=== PATIENT | male | born 1990 | race American Indian/Alaskan Native ===

== ENCOUNTER 2019-12-08 03:12 | Emergency (ER) | payer SELFPAY ==
[2019-12-08 03:20] VITALS: BP 125/72
[2019-12-08] MEDS ORDERED: KETOROLAC 30 MG/1 ML INJ IM ONE (03:48)
--- NOTE | 2019-12-08 03:49 | Emergency Department Report ---
ED Back Pain/Injury HPI - General Chief Complaint: Back Pain/Injury Stated Complaint: BACK PAIN Time Seen by Provider: 12/08/19 03:44 Source: patient Limitations: No Limitations - History of Present Illness Initial Comments: 29-year-old -[place] male presents to the emergency room complaining of lower back pain left hip left side and left testicle pain times a couple of days. Patient reports that the pain is sharp and intermittent. Patient denies any injury. Patient states that his hips are trying to pop out. Patient reported he last took ibuprofen was 7 PM yesterday night. Patient reports he has a past medical history of asthma, pericarditis, pulmonary embolism and clot in left leg. Patient does admit that he drinks alcohol smokes cigarettes smokes weed. Patient denies any dysuria no hematuria. He has an allergy to penicillin. MD Complaint: back pain Onset/Timin -: days(s) Similar Symptoms Previously: No Radiation: groin, left leg (Hip), other (Left testicle) Severity: moderate Severity scale (0 -10): 6 Consistency: intermittent Improves With: none Worsens With: movement Associated Symptoms: denies: difficulty urinating, fever/chills, abdominal pain, loss of appetite, nausea/vomiting - Related Data Previous Rx's Medication Instructions Recorded Last Taken Type Ibuprofen [Motrin 600 MG tab] 600 mg PO Q8H PRN #15 tablet 12/08/19 Unknown Rx Allergies Allergy/AdvReac Type Severity Reaction Status Date / Time Penicillins Allergy Hives Verified 12/08/19 03:20 ED Review of Systems ROS: Stated complaint: BACK PAIN Other details as noted in HPI Comment: All other systems reviewed and negative ED Past Medical Hx - Past Medical History Previous Medical History?: Yes Hx Asthma: Yes Additional medical history: 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 - Surgical History Past Surgical History?: No - Social History Smoking Status: Current Every Day Smoker Substance Use Type: Marijuana - Medications Home Medications: Home Medications Medication Instructions Recorded Confirmed Last Taken Type Ibuprofen [Motrin 600 MG tab] 600 mg PO Q8H PRN #15 tablet 12/08/19 Unknown Rx ED Physical Exam - General Limitations: No Limitations General appearance: alert, in no apparent distress - Head Head exam: Present: atraumatic, normocephalic - Eye Eye exam: Present: normal appearance - ENT ENT exam: Present: mucous membranes moist - Neck Neck exam: Present: normal inspection, full ROM - GI/Abdominal GI/Abdominal exam: Present: soft. Absent: distended - exam: Present: testicular tenderness (Left), circumcision. Absent: urethral discharge, scrotal swelling External exam: Present: other (Left groin adenopathy with tenderness) - Extremities Exam Extremities exam: Present: full ROM - Expanded Lower Extremity Exam Left Hip exam: Present: full ROM, tenderness. Absent: swelling, ecchymosis, deformit y, erythema Upper Leg exam: Present: normal inspection, full ROM Knee exam: Present: normal inspection, full ROM Lower Leg exam: Present: normal inspection, full ROM Ankle exam: Present: normal inspection, full ROM Gait: Positive: observed and normal - Expanded Back Exam Expanded Back exam: Sciatic Notch Tenderness: Left, Positive Straight Leg Raise: Left - Neurological Exam Neurological exam: Present: alert, oriented X3 - Psychiatric Psychiatric exam: Present: normal affect, normal mood ED Course Vital Signs 12/08/19 03:17 Temperature 98.8 F Pulse Rate 74 Respiratory 16 Rate Blood Pressure 125/72 O2 Sat by Pulse 100 Oximetry ED Medical Decision Making - Radiology Data Radiology results: report reviewed Print Report Referring Physician:TUAN GORDONPatient Name:NATHANIEL ESCALANTEPatient ID:[id number] of :[id number]:MaleAccession:[id number] Date:[id number] Status:Finalized Findings [facility] [address] [place] [address] Ultrasound Report Signed Patient: NATHANIEL ESCALANTE MR#: [id number] 81 : 1990 Acct:[id number] Age/Sex: 29 / M ADM Date: 12/08/19 Loc: ED Attending Dr: Ordering Physician: CHESTER BLAIR Date of Service: 12/08/19 Procedure(s): US testicular doppler comp Accession Number(s): [id number] cc: CHESTER BLAIR ULTRASOUND SCROTUM INDICATION: Left testicular pain. COMPARISON None available. FINDINGS -- RIGHT TESTIS: Size: 4.8 x 2.4 x 3.3 cm. Echotexture: Normal. Color Doppler Flow: Normal. Lesions: None. EPIDIDYMIS: Size: Normal. Echotexture: Normal. Color Doppler Flow: Normal. Lesions: None. Hydrocele: None. Varicocele: None. Additional Findings: None. FINDINGS -- LEFT TESTIS: Size: 4.4 x 2.1 x 3.1 cm. Echotexture: Normal. Color Doppler Flow: Normal. Lesions: None. EPIDIDYMIS: Size: Normal. Echotexture: Normal. Color Doppler Flow: Normal. Lesions: None. Hydrocele: None. Varicocele: None. Additional Findings: None. IMPRESSION: 1. No sonographic abnormality of the scrotum. Signer Name: Jeffrey Steven MD Signed: 12/08/2019 4:27 AM Workstation Name: [id number] Transcribed By: CALOS Dictated By: Jeffrey Steven MD Electronically Authenticated By: Jeffrey Steven MD Signed Date/Time: 12/08/19426 DD/ 5 TD/TT: - Medical Decision Making 29-year-old -[place] male presents to the emergency room complaining of lower back pain left hip left side and left testicle pain times a couple of days. Patient reports that the pain is sharp and intermittent. Patient denies any injury. Patient states that his hips are trying to pop out. Patient reported he last took ibuprofen was 7 PM yesterday night. Patient reports he has a past medical history of asthma, pericarditis, pulmonary embolism and clot in left leg. Patient does admit that he drinks alcohol smokes cigarettes smokes weed. Patient denies any dysuria no hematuria. He has an allergy to penicillin. Urinalysis, Toradol injection 30 mg and ultrasound testicular. Critical care attestation.: If time is entered above; I have spent that time in minutes in the direct care of this critically ill patient, excluding procedure time. ED Disposition Clinical Impression: Lower back pain, Testicular pain, left, Left hip pain Disposition: - TO HOME OR SELFCARE Is pt being admited?: No Does the pt Need Aspirin: No Condition: Stable Additional Instructions: Ultrasounds negative for any acute findings urine is negative for any acute findings it does show that you need to drink more fluids. Please take ibuprofen 600 mg every 6-8 hours as needed. You need to increase your water intake by 3 L daily. Follow-up with a primary care provider. Prescriptions: Ibuprofen [Motrin 600 MG tab] 600 mg PO Q8H PRN #15 tablet PRN Reason: Pain Referrals: PRIMARY CAREMD [Primary Care Provider] - 3-5 Days CHIKI GARCIA MD [Staff Physician] - 3-[address] [facility] [Provider Group] - 3-5 Days Forms: Work/School Release Form(ED)
--- NOTE | 2019-12-08 04:31 | Ultrasound Report ---
ULTRASOUND SCROTUM INDICATION: Left testicular pain. COMPARISON None available. FINDINGS -- RIGHT TESTIS: Size: 4.8 x 2.4 x 3.3 cm. Echotexture: Normal. Color Doppler Flow: Normal. Lesions: None. EPIDIDYMIS: Size: Normal. Echotexture: Normal. Color Doppler Flow: Normal. Lesions: None. Hydrocele: None. Varicocele: None. Additional Findings: None. FINDINGS -- LEFT TESTIS: Size: 4.4 x 2.1 x 3.1 cm. Echotexture: Normal. Color Doppler Flow: Normal. Lesions: None. EPIDIDYMIS: Size: Normal. Echotexture: Normal. Color Doppler Flow: Normal. Lesions: None. Hydrocele: None. Varicocele: None. Additional Findings: None. IMPRESSION: 1. No sonographic abnormality of the scrotum. Signer Name: Jeffrey Steven MD Signed: 12/08/2019 4:27 AM Workstation Name: [id number]
[2019-12-08 04:33] LABS: Bacteria,Urine 1+ /HPF (Negative); Bilirubin,Urine NEG (Negative); Blood,Urine SM (Negative); Color,Urine Yellow (Yellow); Mucus,Urine 3+ /HPF
== END 2019-12-08 05:25 | disposition home or self-care (01) ==
LOC: ED 03:12
DX: M54.5 Low back pain (principal); M25.552 Pain in left hip; N50.812 Left testicular pain; F17.200 Nicotine dependence, unspecified, uncomplicated; F12.90 Cannabis use, unspecified, uncomplicated; J45.909 Unspecified asthma, uncomplicated; Z79.899 Other long term (current) drug therapy; Z88.0 Allergy status to penicillin
CPT/HCPCS: 81001; 93975; 96372; 99284; J1885

== ENCOUNTER 2020-10-13 23:38 | Emergency (ER) | payer SELFPAY ==
[2020-10-13 23:52] VITALS: BP 123/65
--- NOTE | 2020-10-14 00:40 | Event Note ---
ED Screening Note ED Screening Note: chest tightness and pressure two days +wheezing +SOB +non productive cough no fever no n/v/d no leg swelling hx of asthma, DVT/PE, pericarditis allergy: penicillin +tobacco +marijuana poor air movement, no obvious wheezing nurse will give camillao neb while awaiting room This initial assessment/diagnostic orders/clinical plan/treatment(s) is/are subject to change based on patients health status, clinical progression and re- assessment by fellow clinical providers in the ED. Further treatment and workup at subsequent clinical providers discretion. Patient/guardian urged not to elope from the ED as their condition may be serious if not clinically assessed and managed. Initial orders include: labs, EKG, CXR
[2020-10-14] MEDS ORDERED: IPRATROPIUM/ALBUTEROL SULFATE 3 ML AMPUL.NEB IH ONE (00:41)
--- NOTE | 2020-10-14 00:54 | XRay Report ---
CHEST 2 VIEWS INDICATION / CLINICAL INFORMATION: CP. COMPARISON: None available. FINDINGS: SUPPORT DEVICES: None. HEART / MEDIASTINUM: No significant abnormality. LUNGS / PLEURA: No significant pulmonary or pleural abnormality. No pneumothorax. ADDITIONAL FINDINGS: No significant additional findings. IMPRESSION: 1. No acute findings. Signer Name: Shikha Ventura MD Signed: 10/14/2020 12:49 AM Workstation Name: [id number]
[2020-10-14 01:57] LABS: Alanine Aminotransferase 13 units/L (7-56); BUN/Creatinine Ratio 7; Blood Urea Nitrogen 7 mg/dL (9-20); Calcium 10.1 mg/dL (8.4-10.2); Hemolysis Index 8
[2020-10-14] MEDS ORDERED: LORazepam 2 MG/ML VIAL IV ONE (01:59)
[2020-10-14 02:13] LABS: Basophils # (Auto) 0.1 K/mm3 (0.0-0.1); Basophils % (Auto) 0.4 % (0.0-1.8); Eosinophils # (Auto) 0.3 K/mm3 (0.0-0.4); Eosinophils % (Auto) 1.7 % (0.0-4.3); Hematocrit 46.1 % (35.5-45.6); Hemoglobin 15.4 gm/dl (11.8-15.2); Lymphocytes # (Auto) 1.5 K/mm3 (1.2-5.4); Lymphocytes % (Auto) 9.4 % (13.4-35.0); Mean Corpuscular HGB Conc 34 % (32-34); Mean Corpuscular Volume 94 fl (84-94); Monocytes # (Auto) 1.2 K/mm3 (0.0-0.8); Monocytes % (Auto) 7.4 % (0.0-7.3); Red Blood Count 4.89 M/mm3 (3.65-5.03); Red Cell Distribution Width 13.7 % (13.2-15.2)
[2020-10-14 02:29] LABS: Platelet Count 90 K/mm3 (140-440)
[2020-10-14 02:34] LABS: INR 1.08 (0.87-1.13)
[2020-10-14 02:35] LABS: Partial Thromboplastin Time 35.1 Sec. (24.2-36.6)
[2020-10-14] MEDS ORDERED: SODIUM CHLORIDE 0.9% 1000 ML 1,000 ML IV ONE (03:01)
[2020-10-14 04:57] LABS: Bacteria,Urine 1+ /HPF (Negative); Bilirubin,Urine NEG (Negative); Blood,Urine NEG (Negative); Color,Urine Yellow (Yellow); Protein,Urine <15 mg/dL mg/dL (Negative); Urobilinogen,Urine < 2.0 mg/dL (<2.0)
--- NOTE | 2020-10-14 06:14 | Emergency Department Report ---
ED Chest Pain HPI - General Chief Complaint: Chest Pain Stated Complaint: SOB/CHEST PAIN/BODY TINGLING PUI?: No Time Seen by Provider: 10/14/20 00:35 Source: patient Mode of arrival: Ambulatory Limitations: No Limitations - History of Present Illness MD Complaint: chest pain -: Gradual Pain Location: substernal Pain Radiation: none Severity: mild Quality: aching, sharp Consistency: constant Improves With: nothing Worsens With: nothing re: denies: nausea, sense of impending doom Other Symptoms: denies: fever, syncope, acid taste in mouth, palpitations, burping - Related Data Previous Rx's Medication Instructions Recorded Last Taken Type Ibuprofen [Motrin 600 MG tab] 600 mg PO Q8H PRN #15 tablet 12/08/19 Unknown Rx Allergies Allergy/AdvReac Type Severity Reaction Status Date / Time Penicillins Allergy Hives Verified 12/08/19 03:20 Heart Score - HEART Score History: Slightly suspicious EKG: Significant ST-depression Age: < 45 Risk factors: 1-2 risk factors Troponin: < normal limit HEART Score: 3 - EKG Read Time Time EKG Completed: 23:42 EKG Read Time: 23:55 ED Review of Systems ROS: Stated complaint: SOB/CHEST PAIN/BODY TINGLING Other details as noted in HPI Comment: All other systems reviewed and negative ED Past Medical Hx - Past Medical History Previous Medical History?: Yes Hx Deep Vein Thrombosis: Yes Hx Pulmonary Embolism: Yes Hx Asthma: Yes Additional medical history: 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 - Surgical History Past Surgical History?: No - Social History Smoking Status: Current Every Day Smoker Substance Use Type: Marijuana - Medications Home Medications: Home Medications Medication Instructions Recorded Confirmed Last Taken Type Ibuprofen [Motrin 600 MG tab] 600 mg PO Q8H PRN #15 tablet 12/08/19 Unknown Rx ED Physical Exam - General Limitations: No Limitations General appearance: alert, in no apparent distress - Head Head exam: Present: atraumatic, normocephalic - Eye Eye exam: Present: normal appearance, PERRL, EOMI - ENT ENT exam: Present: mucous membranes moist - Neck Neck exam: Present: normal inspection - Respiratory Respiratory exam: Present: normal lung sounds bilaterally. Absent: respiratory distress - Cardiovascular Cardiovascular Exam: Present: regular rate, normal rhythm, normal heart sounds. Absent: systolic murmur, diastolic murmur, rubs, gallop - GI/Abdominal GI/Abdominal exam: Present: soft, normal bowel sounds - Rectal Rectal exam: Present: deferred - Extremities Exam Extremities exam: Present: normal inspection - Back Exam Back exam: Present: normal inspection - Neurological Exam Neurological exam: Present: alert, oriented X3, CN II-XII intact, normal gait - Psychiatric Psychiatric exam: Present: normal affect, normal mood - Skin Skin exam: Present: warm, dry, intact, normal color. Absent: rash ED Course Vital Signs 10/13/20 10/13/20 10/14/20 23:51 23:52 01:59 Temperature 99.9 F H Pulse Rate 107 H Pulse Rate [ 95 H Bilateral] Respiratory 18 Rate Respiratory 22 Rate [Bilateral ] Blood Pressure 123/65 O2 Sat by Pulse 100 Oximetry 10/14/20 07:12 Temperature Pulse Rate 88 Pulse Rate [ Bilateral] Respiratory 16 Rate Respiratory Rate [Bilateral ] Blood Pressure O2 Sat by Pulse 99 Oximetry ANTIONE score - Antione Score Age > 65: (0) No Aspirin use within the Past 7 Days: (0) No 3 or more CAD Risk Factors: (0) No 2 or more Angina events in past 24 hrs: (0) No Known CAD with more than 50% Stenosis: (0) No Elevated Cardiac Markers: (0) No ST Deviation Greater than 0.5mm: (0) No ANTIONE Score: 0 ED Medical Decision Making - Lab Data Result diagrams: 10/14/20 00:46 10/14/20 00:46 - EKG Data EKG shows normal: sinus rhythm Rate: normal - EKG Data When compared to previous EKG there are: previous EKG unavailable Interpretation: normal EKG - Radiology Data Radiology results: report reviewed [address] [place] [id number] XRay Report Signed Patient: NATHANIEL ESCALANTE MR#: [id number] [birth year] : 1990 Acct:[id number] Age/Sex: 30 / M ADM Date: 10/13/20 Loc: ED Attending Dr: Ordering Physician: NIDA RAMIREZ MD Date of Service: 10/13/20 Procedure(s): XR chest routine 2V Accession Number(s): [id number] cc: ED MD ASHLEY Fluoro Time In Minutes: CHEST 2 VIEWS INDICATION / CLINICAL INFORMATION: CP. COMPARISON: None available. FINDINGS: SUPPORT DEVICES: None. HEART / MEDIASTINUM: No significant abnormality. LUNGS / PLEURA: No significant pulmonary or pleural abnormality. No pneumothorax. ADDITIONAL FINDINGS: No significant additional findings. IMPRESSION: 1. No acute findings. Signer Name: Shikha Ventura MD Signed: 10/14/2020 12:49 AM Workstation Name: [id number] Transcribed By: [facility] Dictated By: Shikha Ventura MD Electronically Authenticated By: Shikha Ventura MD Signed Date/Time: 10/14/2048 DD/ TD/TT: - Medical Decision Making This patient presents with chest pain that is very unlikely angina or acute coronary syndrome. The emergency department evaluation has not identified any cause for suspicion that this chest pain has a cardiac etiology. Based on their history, EKG (which showed no evidence of ischemia or infarction) and imaging, in addition to the patient's physical exam, I see no evidence at this time for a malignant etiology for the patient's chest pain. There is no acute evidence for pulmonary embolus, acute myocardial infarction, pneumothorax, Boerhaeve syndrome, cardiac tamponade, thoracic artery dissection, or any other emergent cardiac, pulmonary or aortic pathology. Given the low pre-test probability for cardiac etiology of chest pain and the absence of any sign of ischemia or infa rction, discharge for outpatient follow-up and further evaluation is reasonable. I have explained to the patient that even though a cardiac problem is very unlikely, follow-up and further testing is required to reduce further the already small uncertainty that exists. Other life-threatening diagnoses have been considered. The patient understands the need to return immediately if their symptoms worsen or they develop any new symptoms, and not to engage in any significant exertional activity until follow-up is obtained. Critical Care Time: No Critical care attestation.: If time is entered above; I have spent that time in minutes in the direct care of this critically ill patient, excluding procedure time. ED Disposition Clinical Impression: SOB (shortness of breath), Chest pain Disposition: -01 TO HOME OR SELFCARE Is pt being admited?: No Does the pt Need Aspirin: No Condition: Stable Instructions: Nonspecific Chest Pain, Adult, Shortness of Breath, Adult, Cough, Adult Referrals: PRIMARY CARE, [Primary Care Provider] - 3-5 Days SARAH VALLEOJ MD [Staff Physician] - 3-5 Days
--- NOTE | 2020-10-14 17:55 | Electrocardiograph Report ---
[facility] Test Date: 2020-10-13 Test Time: 23:42:35 Pat Name: NATHANIEL ESCALANTE Department: Room: Gender: M Top Closer: DIGNA : 1990 Requested By: MARY GRACE PARRA III Order Number: [id number] Reading MD: Guy Fu Measurements Intervals [place] Rate: 99 P: 78 [place]: 143 QRS: 83 QRSD: 81 T: 50 QT: 320 QTc: 410 Interpretive Statements Sinus rhythm Biatrial enlargement ST elev, probable normal early repol pattern No previous ECG available for comparison Electronically Signed On 10-14-2020 17:54:44 EDT by Guy Fu
== END 2020-10-14 07:12 | disposition home or self-care (01) ==
LOC: ED 23:38
DX: J45.909 Unspecified asthma, uncomplicated (principal); F17.200 Nicotine dependence, unspecified, uncomplicated; F12.10 Cannabis abuse, uncomplicated; Z79.899 Other long term (current) drug therapy
CPT/HCPCS: 36415; 71046; 80053; 81001; 83880; 84484; 85025; 85379; 85610; 85730; 93005; 94640; 96361; 96374; 99284; J2060; J7030; 94644